=== PATIENT | male | born 1985 | race Caucasian/White ===

== ENCOUNTER 2022-11-16 11:47 | Emergency (ER) | payer SELFPAY ==
[2022-11-16 11:56] VITALS: BP 137/78; PULSE 94; RESP 16; TEMP 36.8; O2SAT 98; BMI 24.3
--- NOTE | 2022-11-16 12:46 | W.ED.EXTPRO ---
HPI - Extremity Problem General: Chief complaint: Extremity Injury, Upper Stated complaint: Left Shoulder pain Time Seen by Provider: 11/16/22 12:14 Source: patient Mode of arrival: ambulatory Limitations: no limitations History of Present Illness: Patient is a 37-year-old male who presents to ED today with a complaint of left shoulder pain over the past 3.5 weeks. No known injury or trauma. 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 States it flared up similarly last year but went away on its own after 2 weeks or so. Patient has not noticed any redness or warmth to the joint. He denies numbness or tingling to the arm. MD Complaint: joint pain Onset (ago): week(s) Pain Consistency: constant Location: left and upper extremity Radiation: none Relieving factors: nothing Exacerbating factors: range of motion and other Associated symptoms: Reports no associated symptoms; Deny chest pain Review of Systems Card: Denies: chest pain Resp: Denies: dyspnea Musc: Reports: joint pain; Denies: neck pain, back pain, extremity pain, extremity swelling, joint swelling, joint redness or joint warmth Neuro: Denies: numbness in extremities, weakness in extremities or sensory changes Physical Exam Const: COMMON NORMALS: no acute distress, average body habitus, patient oriented x3, no limitations, healthy appearing, alert and well nourished Neck/C-Spine: NECK IMAGES: 1. feels like pain in his shoulder is causing area to spasm Resp: COMMON NORMALS: normal respiratory effort and clear to auscultation bilaterally AUSCULTATION: clear to auscultation bilaterally Cardio: COMMON NORMALS: regular rate and regular rhythm RATE: regular rate RHYTHM: regular rhythm Back/Pelvis: COMMON NORMALS: thoracic and lumbar spine normal to inspection, no thoracic nor lumbar tenderness and thoraco-lumbar ROM normal Extremity: COMMON NORMALS: normal to inspection, full ROM, capillary refill normal, no joint enlargement and no calf tenderness GENERAL: Yes normal exam except as noted LEFT UPPER EXTREMITY: Yes shoulder joint (TTP anterior/posterior joint line) Left shoulder joint: Yes neurovascular exam (normal) Neuro: COMMON NORMALS: patient oriented x3, moves all extremities, no focal motor deficits and no sensory deficits noted SENSORIUM/ORIENTATION: Yes alert Course Vital Signs: Vital signs: Vital Signs Temperature 98.3 F 11/16/22 11:56 Pulse Rate 94 11/16/22 11:56 Respiratory Rate 16 11/16/22 11:56 Blood Pressure 137/78 11/16/22 11:56 Pulse Oximetry 98 11/16/22 11:56 Oxygen Delivery Me thod Room Air 11/16/22 11:56 MDM - Extremity (Nontraumatic) Medical Decision Making Most likely chronic overuse injury/tendonitis/labral tear. I think XR at this time would be fairly low yield. We will place him on NSAIDs and steroids. He does feel like his neck is spasming secondary to pain in his shoulder so we will prescribe him cyclobenzaprine. We will have case management set him up with primary care provider further evaluation if symptoms do not improve. Discharge Plan Discharge Patient Disposition: Home Clinical Impression: Acute pain of left shoulder Condition: Stable Prescriptions: New cyclobenzaprine 10 mg tablet 10 mg PO TID Qty: 14 0RF diclofenac sodium 50 mg tablet,delayed release (DR/EC) 50 mg PO Q12H PRN (Reason: pain) Qty: 20 0RF Medrol (Cody) 4 mg tablets,dose pack See Rx Instructions .ROUTE .COMPLEX Qty: 21 0RF Rx Instructions: orally per package directions Discharge Orders: Discharge ED (Routine); Ordered 11/16/22 Ordered By: Lashell Dockery Patient Instructions: Shoulder Pain (ED) Coding Level of Care Code ED Identification Printing Machine Setter for Mica Eastman
[2022-11-16] MEDS: dexamethasone 10 mg/mL INJ 6 MG IM (13:08)
[2022-11-16] MEDS: ketorolac 60 mg/2 mL INJ IM (13:08)
--- NOTE | 2022-11-16 15:35 | PC.NURSE ---
Patient was seen in the ED for shoulder pain. Referral for a pcp follow up. TCM attempted to call patient with no answer.
--- NOTE | 2022-11-24 15:07 | DCPLANNER ---
TCM called patient due to no primary care physician - no answer at this time.
== END 2022-11-16 13:16 | disposition home or self-care (01) ==
PROVIDERS: Emergency Provider Physician Assistant
DX: M25.512 Pain in left shoulder (principal)
CPT/HCPCS: 96372; 99284; J1100; J1885

== ENCOUNTER 2023-10-12 10:37 | Emergency (ER) | payer SELFPAY ==
[2023-10-12] VITALS (13 sets, daily range): BP systolic 152–162; BP diastolic 90–100; PULSE 79–113; RESP 16–18; TEMP 36.6; O2SAT 94–99
--- NOTE | 2023-10-12 10:41 | XR_ITS ---
WS: [id number] Exam: XR chest 1V portable [id number] Date/Time of Exam: 10/12/2023 10:41 AM Reason For Exam: sob Comparison 03/04/2011. Findings: The lungs are clear and fully expanded. Costophrenic angles are sharp. No infiltrates. Bronchovascula r relief appears normal. Cardiac silhouette is unremarkable. Bony elements are intact. IMPRESSION: Unremarkable chest radiograph.
--- NOTE | 2023-10-12 10:49 | ECG_ITS ---
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 Measurements Intervals [place] Rate: 91 P: 76 [place]: 135 QRS: 67 QRSD: 77 T: 58 QT: 321 QTc: 395 Interpretive Statements SINUS RHYTHM POSSIBLE LEFT ATRIAL ENLARGEMENT [-0.1mV P-WAVE IN V1/V2] MINIMAL ST DEPRESSION [0.025+ mV ST DEPRESSION] No previous ECG available for comparison Electronically Signed On 10-12-2023 11:46:54 CDT by Kel Stevens M.D. [id number]
--- NOTE | 2023-10-12 12:04 | ED_ITS ---
HPI - SOB/Dyspnea 2 General: Chief Complaint: Shortness of Breath/Dyspnea Stated Complaint: SOB Time Seen by Provider: 10/12/23 11:22 History of Present Illness: HPI Narrative: 38-year-old male presents emergency room with complaint of shortness of breath and cough this been going on for about 3 years seen on noticing thing exacerbates or relieves it. He has not had any fever sweats or chills at time he will cough up some dark mucus but is not persistent. No history of smoking. 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 His cough is feels like is actually gotten a little better lately until he coughed up to dark mucus this morning. No hemoptysis no history of COPD or asthma. No associated chest pain. Course 2 Vital Signs: Vital signs: Vital Signs Temperature 97.9 F 10/12/23 10:41 Pulse Rate 82 10/12/23 12:55 Respiratory Rate 18 10/12/23 12:25 Blood Pressure 152/90 10/12/23 12:55 Pulse Oximetry 95 10/12/23 12:55 Oxygen Delivery Me thod Room Air 10/12/23 10:41 MDM - SOB/Dyspnea Medical Decision Making D-dimer negative troponin 6 patient has had this for months if not years. EKG does not show any acute changes reviewed as found in the chart and other labs unremarkable. Discharge patient home he has had problems with reflux in the past biggest issue is his chronic cough. Recommend he has tried [id number] omeprazole as well large Nexium needed 1 pill twice a day for 10 days then go down to 1 once daily establish with primary care doctor evaluate further Medical Records I reviewed the patient's medical records. Lab Data I reviewed the patient's lab results. 10/12/23 12:24 10/12/23 12:24 Labs/Radiology: Laboratory Results WBC 5.65 10^3/uL (3.29-11.43) 10/12/23 12:24 RBC 4.64 10^6/uL (3.85-5.65) 10/12/23 12:24 Hgb 15.30 g/dL (11.27-16.99) 10/12/23 12:24 Hct 43.4 % (37-53) 10/12/23 12:24 MCV 93.5 fl (82-101) 10/12/23 12:24 MCH 33.0 pg (27-33) 10/12/23 12:24 MCHC 35.3 g/dL (30-55) 10/12/23 12:24 RDW 13.0 % (12.1-15.1) 10/12/23 12:24 Plt Count 225 10^3/cmm (157-399) 10/12/23 12:24 MPV 10.0 fL (7.4-10.4) 10/12/23 12:24 Neut % (Auto) 64.4 % 10/12/23 12:24 Lymph % (Auto) 24.1 % 10/12/23 12:24 [place] % (Auto) 7.4 % 10/12/23 12:24 Eos % (Auto) 3.0 % 10/12/23 12:24 Baso % (Auto) 0.9 % 10/12/23 12:24 Neut # (Auto) 3.64 10^3/uL (1.8-7.7) 10/12/23 12:24 Lymph # (Auto) 1.4 10^3/uL (0.8-4.8) 10/12/23 12:24 [place] # (Auto) 0.4 10^3/uL (0.2-0.9) 10/12/23 12:24 Eos # (Auto) 0.2 10^3/uL (0.0-0.8) 10/12/23 12:24 Baso # (Auto) 0.1 10^3/uL (0.0-0.1) 10/12/23 12:24 Nucleated RBC % (auto) 0 % 10/12/23 12:24 Nucleated RBCs # 0.0 /100WBC 10/12/23 12:24 D-Dimer <= 0.27 ug/mLFEU (0-0.59) 10/12/23 12:24 Sodium 141 mmol/L (136-145) 10/12/23 12:24 Potassium 4.1 mmol/L (3.5-5.1) 10/12/23 12:24 Chloride 106 mmol/L (98-107) 10/12/23 12:24 Carbon Dioxide 27 mmol/L (22-29) 10/12/23 12:24 Anion Gap 12.1 (5-19) 10/12/23 12:24 BUN 14 mg/dL (6-20) 10/12/23 12:24 Creatinine 1.0 mg/dL (0.7-1.2) 10/12/23 12:24 GFR Calculation 83.6 mL/min (90-130) L 10/12/23 12:24 Glucose 94 mg/dL (65-115) 10/12/23 12:24 Calculated Osmolality 292 mOsm/kg (285-295) 10/12/23 12:24 Calcium 9.5 mg/dL (8.5-10.5) 10/12/23 12:24 Total Bilirubin 0.3 mg/dL (0.15-1.2) 10/12/23 12:24 AST 25 U/L (0-40) 10/12/23 12:24 ALT 25 U/L (0-41) 10/12/23 12:24 Alkaline Phosphatase 63 U/L (40-130) 10/12/23 12:24 Troponin T Baseline < 6 ng/L (0-15) 10/12/23 12:24 Total Protein 7.9 g/dL (6.6-8.7) 10/12/23 12:24 Albumin 4.6 g/dL (3.5-5.2) 10/12/23 12:24 Globulin 3.3 g/dL (1.3-4.6) 10/12/23 12:24 All radiology interpretation(s) finalized by discharge Discharge Plan Discharge Patient Disposition: Home Clinical Impression: Dyspnea Condition: Stable Prescriptions: No Action No Known Home Medications Discharge Orders: Discharge ED (Routine); Ordered 10/12/23 Ordered By: John Downing Discharge Diet: Usual diet Discharge Activity: Resume usual activity Patient Instructions: Opioid Safety, Pain Management Activity Restrictions/Additional Instructions: Thank you for choosing [facility] for your healthcare needs today. Please realize this is an emergency room and that we are providing you with a medical screening exam and this may not be complete and all inclusive of all the testing and or work up that you may need to determine your ailment or severity of your illness. It is very important that you follow up as instructed or that you return to the Emergency Department should you have concerns or if your condition changes or worsens in any way. Follow-up with your primary care doctor for further evaluations on the cause of your shortness of breath. Coding Level of Care Code ED Crm Developer for Mica Eastman
[2023-10-12 12:40] LABS: Basophils # 0.1 10^3/uL (0.0-0.1); Basophils % 0.9 %; Eosinophils # 0.2 10^3/uL (0.0-0.8); Hematocrit 43.4 % (37-53); Lymphocytes # 1.4 10^3/uL (0.8-4.8); Lymphocytes % 24.1 %; Mean Corpuscular HGB Conc 35.3 g/dL (30-55); Mean Corpuscular Volume 93.5 fl (82-101); Monocytes # 0.4 10^3/uL (0.2-0.9); Monocytes % 7.4 %; Neutrophils # 3.64 10^3/uL (1.8-7.7); Neutrophils % 64.4 %; Nucleated Red Blood Cells % 0 %; Platelet Count 225 10^3/cmm (157-399); Red Blood Count 4.64 10^6/uL (3.85-5.65); White Blood Count 5.65 10^3/uL (3.29-11.43)
[2023-10-12 13:00] LABS: D Dimer <= 0.27 ug/mLFEU (0-0.59)
[2023-10-12 13:01] LABS: Alanine Aminotransferase 25 U/L (0-41); Albumin Level 4.6 g/dL (3.5-5.2); Alkaline Phosphatase 63 U/L (40-130); Anion Gap 12.1 (5-19); Aspartate Amino Transferase 25 U/L (0-40); Blood Urea Nitrogen 14 mg/dL (6-20); Calcium 9.5 mg/dL (8.5-10.5); Carbon Dioxide 27 mmol/L (22-29); Chloride 106 mmol/L (98-107); Creatinine Clr Calc Pharmacy 95.4102; Globulin 3.3 g/dL (1.3-4.6); Glomerular Filtration Rate 83.6 mL/min (90-130); Glucose 94 mg/dL (65-115); Osmolality Calculated 292 mOsm/kg (285-295); Potassium 4.1 mmol/L (3.5-5.1); Sodium 141 mmol/L (136-145); Total Bilirubin 0.3 mg/dL (0.15-1.2); Total Protein 7.9 g/dL (6.6-8.7)
[2023-10-12 13:42] LABS: Troponin(5th) Baseline < 6 ng/L (0-15)
== END 2023-10-12 14:18 | disposition home or self-care (01) ==
PROVIDERS: Emergency Provider Family Medicine
DX: R06.00 Dyspnea, unspecified (principal)
CPT/HCPCS: 71045; 80053; 84484; 85025; 85378; 93005; 99285

== ENCOUNTER 2024-11-30 16:07 | Emergency (ER) | payer BC, MEDICAID, SELFPAY ==
[2024-11-30 16:14] VITALS: BP 118/74; PULSE 83; RESP 16; TEMP 36.6; O2SAT 99; BMI 24.3
--- NOTE | 2024-11-30 16:52 | ED_ITS ---
HPI - Dental/Oral General: Chief complaint: Dental/Oral Stated complaint: swelling under jaw line Time Seen by Provider: 11/30/24 16:19 Source: patient Mode of arrival: ambulatory Limitations: no limitations History of Present Illness: 39-year-old male states been having some right sided jaw pain radiates down to his neck been going on for roughly 10 to 14 days. Pains been sharp and does have a history of some poor dentition denies any fevers he denies any difficulty swallowing no muffled voice. Associated symptoms: Denies fever(s) Related Data Previous Rx's ?Medication ?Instructions ?Recorded cephalexin 500 mg capsule 500 mg PO TID 7 days #21 cap s 11/30/24 hydrocodone 5 mg-acetaminophen 325 1 tab PO Q6H PRN pa in #14 tabs 11/30/24 mg tablet Allergies Allergy/AdvReac Type Severity Reaction Status Date / Time No Known Allergies Allergy Verified 10/12/23 10:47 Review of Systems Const: Denies: fever(s), chills, body aches or change in appetite ENMT: Reports: dental pain; Denies: throat pain Card: Denies: chest pain Resp: Denies: dyspnea GI: Denies: abdominal pain, nausea, vomiting or diarrhea Musc: Reports: neck pain; Denies: back pain Skin/Breast: Denies: rash Neuro: Denies: headache(s) Physical Exam Const: COMMON NORMALS: no acute distress, patient oriented x3 and healthy appearing HENMT: COMMON NORMALS: normocephalic and atraumatic HEAD & SCALP: normocephalic and atraumatic OTHER: Slight tenderness of the right lower molar no trismus no uvular deviation handling secretions well Neck/C-Spine: COMMON NORMALS: full ROM and supple OTHER: Lymph node palpable right side of the neck no abscess Chest: COMMONS NORMALS: normal inspection of the chest Resp: COMMON NORMALS: normal respiratory effort Cardio: COMMON NORMALS: regular rate RATE: regular rate Extremity: COMMON NORMALS: normal to inspection and full ROM Neuro: COMMON NORMALS: patient oriented x3, moves all extremities and no focal motor deficits Psych: COMMON NORMALS: mental status grossly normal, Normal thought process present and cooperative THOUGHT PROCESS: Normal thought process present Skin: COMMON NORMALS: no rashes or lesions noted and no wounds GENERAL SKIN EXAM: no rashes or lesions noted Course Vital Signs: Vital signs: Vital Signs Temperature 97.9 F 11/30/24 16:14 Pulse Rate 83 11/30/24 16:14 Respiratory Rate 16 11/30/24 16:14 Blood Pressure 118/74 11/30/24 16:14 Pulse Oximetry 99 11/30/24 16:14 Oxygen Delivery Me thod Room Air 11/30/24 16:14 MDM - Dental/Oral Medical Decision Making Patient presents here with dental pain along with neck pain does have a palpable lymph node no signs of abscess no signs of peritonsillar abscess handling secretions well will be dose of Decadron will place him on antibiotics he is to follow-up with his PCP return if worsening he understands agrees to plan Medical Records I reviewed the patient's medical records. No radiology studies performed this visit Discharge Plan Discharge Patient Disposition: Home Clinical Impression: Pain, dental, Neck pain Condition: Stable Prescriptions: New hydrocodone-acetaminophen 5-325 mg tablet 1 tab PO Q6H PRN (Reason: pain) Qty: 14 0RF cephalexin 500 mg capsule 500 mg PO TID 7 Days Qty: 21 0RF Discharge Orders: Discharge ED (Routine); Ordered 11/30/24 Ordered By: Belinda Alonzo Discharge Diet: Advance as tolerated Discharge Activity: Resume usual activity Patient Instructions: Toothache (ED), Neck Pain (ED) Print Language: Persian Coding Level of Care Code ED Technology Sales Specialist for Mica Eastman
[2024-11-30] MEDS: HYDROcodone-acetaminophen 7.5-325 mg Tablet 1 TAB PO (17:03)
[2024-11-30] MEDS: dexamethasone 10 mg/mL INJ IM (17:03)
[2024-11-30 17:10] VITALS: BP 127/78; PULSE 84; O2SAT 96
== END 2024-11-30 17:13 | disposition home or self-care (01) ==
PROVIDERS: Emergency Provider Emergency Medicine
DX: K08.89 Other specified disorders of teeth and supporting structures (principal); M54.2 Cervicalgia
CPT/HCPCS: 96372; 99284; J1100; J9999

== ENCOUNTER 2025-03-31 10:12 | Emergency (ER) | payer BC, MEDICAID, SELFPAY ==
--- NOTE | 2025-03-31 10:19 | XR_ITS ---
WS: [id number] Right shoulder, 3 views, 03/31/2025 Clinical Data: pain Comparison: None. Findings: No fractures or dislocations are seen. The AC joint is normal. The adjacent right clavicle, right scapula and ribs are normal. The soft tissues are unremarkable. XR/XR shoulder RT min 2V* [id number] Impression: Negative right shoulder.
--- OUTSIDE RECORDS SUMMARY | 2025-03-31 10:30 | XMS_ITS | Patient Health Record ---
Author Organization [employer] [facility] Address [address] [address] Care Team Providers Care Conveyor Belt Repairer Name Role Phone BronxJustin gaticai Unavailable [phone] Allergies No Known Allergies Reason For Referral No Information Social History Sex Assigned At : Social History Observation Description Sex Assigned At Male Problems Problem Type SNOMED Code ICD Code Onset Dates Problem Status W/U Status Risk Notes Problem Dysphagia (31141047) Dysphagia, unspecified type (R13.10) Active confirmed Vital Signs Heart Rate 68 /min 12/02/202404/04-throat pa in Temperature 97.8 degrees Fahrenheit 12/02/202403/26 0-throat pain Height-cm 175.26 cm 12/02/202404/04-throat pa in Blood pressure diastolic 86 mm Hg 12/02/2024-throat pain Oximetry 99 % 12/02/202404/04-throat pa in Weight-kg 76.57 kg 12/02/202404/04-throat pa in Height 69 in 12/02/202404/04-throat pa in Blood pressure systolic 132 mm Hg 12/02/202403/26 0-throat pain Weight 168.8 lbs 12/02/202404/04-throat pa in BMI 24.92 kg/m2 12/02/202404/04-throat pa in Encounters Encounter Location Date Provider Diagnosis [facility] [address] [facility] [address] [place] [address] 12/02/2024 Barbie Segovia Trismus R25.2 ; Dysphagia, unspecified type R13.10 and Tender lymph node R09.89 Assessments Encounter Date Diagnosis (ICD Code) Assessment Notes Treatment Notes Treatment Clinical Notes Section Notes 12/02/2024 Dysphagia, unspecified type (ICD-10 - R13.10) 12/02/2024 Trismus (ICD-10 - R25.2) 12/02/2024 Tender lymph node (ICD-10 - R09.89) 12/02/2024 Other Patient is stable. No acute distress. will take him to ER now per private car. Advised to remain n.p.o. Plan Of Treatment No Information Insurance Providers Payer Name Payer Address Payer Phone Subscriber Number Group Number Insured Name Patient Relationship to Insured Coverage Start Date Coverage End Date Healthy [facility] [address] [address] [place], [place] [phone] [id number] DARON ROQUE Self - patient is the insured 4
[2025-03-31 10:34] VITALS: BP 130/77; PULSE 78; RESP 16; O2SAT 94
--- NOTE | 2025-03-31 10:50 | W.ED.UPPEXIN ---
HPI - Extremity Injury (Upper) General: Chief Complaint: Extremity Injury, Upper Stated Complaint: Right shoulder pain Time Seen by Provider: 03/31/25 10:39 Source: patient Mode of arrival: ambulatory Limitations: no limitations History of Present Illness: Patient is a nice 40-year-old male who presents to ED today for evaluation of right shoulder pain. Patient states he has had pain for a few days but states he was lifting something heavy when he immediately noticed worsening pain. He feels like his pain is mainly located posteriorly. He describes it as sharp and burning. He has not noticed any swelling or redness to the joint. MD complaint: injury to: right and shoulder Onset (ago): day(s) Other Extremity Injury: Right: shoulder Other injuries: none Place: home Severity: moderate Relieving factors: immobilization Exacerbating factors: movement of extremity Associated symptoms: Reports no associated symptoms; Denies neck pain or weakness in extremities Related Data Previous Rx's ?Medication ?Instructions ?Recorded hydrocodone 5 mg-acetaminophen 325 1 tab PO Q6H PRN pain #14 tabs 11/30/24 mg tablet ibuprofen 800 mg tablet 800 mg PO Q8H PRN pain #20 tabs 03/31/25 methylprednisolone 4 mg tablets in See Rx Instructions PO .COMPLEX 03/31/25 a dose pack (Medrol (Cody)) #21 ea Allergies Allergy/AdvReac Type Severity Reaction Status Date / Time No Known Allergies Allergy Verified 10/12/23 10:47 Review of Systems Const: Denies: fever(s) Card: Denies: chest pain Resp: Denies: dyspnea Musc: Reports: joint pain (R shoulder); Denies: neck pain, back pain, extremity pain, extremity swelling, joint swelling or joint redness Skin/Breast: Denies: rash Neuro: Denies: headache(s), numbness in extremities, weakness in extremities, sensory changes, difficulty walking or dizziness Physical Exam Const: COMMON NORMALS: no acute distress, average body habitus, no limitations, healthy appearing, alert and well nourished Neck/C-Spine: COMMON NORMALS: full ROM CERVICAL SPINE: No Cervical spine tenderness, No Paracervical muscle tenderness and No Trapezius muscle tenderness Resp: COMMON NORMALS: normal respiratory effort and clear to auscultation bilaterally AUSCULTATION: clear to auscultation bilaterally Back/Pelvis: COMMON NORMALS: thoracic and lumbar spine normal to inspection and no thoracic nor lumbar tenderness Extremity: COMMON NORMALS: capillary refill normal GENERAL: Yes normal exam except as noted RIGHT UPPER EXTREMITY: Yes shoulder joint (TTP posterior R shoulder) Right shoulder: Yes Right shoulder joint ROM exam (fairly normal passive ROM) and Yes Right shoulder joint neurovascular exam (normal) Neuro: COMMON NORMALS: moves all extremities, no focal motor deficits and no sensory deficits noted SENSORIUM/ORIENTATION: Yes alert Course Vital Signs: Vital signs: Vital Signs Pulse Rate 78 03/31/25 10:34 Respiratory Rate 16 03/31/25 10:34 Blood Pressure 130/77 03/31/25 10:34 Pulse Oximetry 98 03/31/25 10:57 Oxygen Delivery Me thod Room Air 03/31/25 10:57 MDM - Extremity Injury (Upper) Medical Decision Making XR unremarkable. Patient will be treated with NSAIDs/steroids. Recommend other conservative therapies such as ice/heat and topical therapies. If symptoms do not improve with conservative treatment, recommend he follow-up with primary care as physical therapy may be beneficial. DDx-impingement syndrome, sprain/strain right shoulder, rotator cuff tear Medical Records I reviewed the patient's medical records. Lab Data Radiology Impressions Shoulder X-Ray 03/31/25 10:19 Impression: Negative right shoulder. All radiology interpretation(s) finalized by discharge Discharge Plan Discharge Patient Disposition: Home Clinical Impression: Injury of shoulder, right Condition: Stable Prescriptions: New ibuprofen 800 mg tablet 800 mg PO Q8H PRN (Reason: pain) Qty: 20 0RF methylprednisolone [Medrol (Cody)] 4 mg tablets,dose pack See Rx Instructions .ROUTE .COMPLEX Qty: 21 0RF Rx Instructions: orally per package directions No Action hydrocodone-acetaminophen 5-325 mg tablet 1 tab PO Q6H PRN (Reason: pain) Qty: 14 0RF Discharge Orders: Discharge ED (Routine); Ordered 03/31/25 Ordered By: Lashell Dockery Referrals: Barbie Segovia FNP [Primary Care Provider, Family Practice] Patient Instructions: Patient Portal & Arlette Instructions Activity Restrictions/Additional Instructions: As we discussed, if symptoms do not improve over the next 2 weeks or so with conservative therapies including the steroids and anti-inflammatories you are prescribed today along with ice/heat topical therapies such as lidocaine/Biofreeze you will need to follow-up with primary care. You may require MRI imaging or physical therapy to help with your shoulder pain. Print Language: [place] Rican Coding Level of Care Code ED Manufacturing Quality Technician for Mica Eastman
[2025-03-31 10:57] VITALS: O2SAT 98
[2025-03-31 11:04] VITALS: BP 126/76; PULSE 82; RESP 17; O2SAT 99
== END 2025-03-31 11:05 | disposition home or self-care (01) ==
PROVIDERS: Emergency Provider Physician Assistant; PCP Nurse Practitioner
DX: S49.91XA Unspecified injury of right shoulder and upper arm, initial encounter (principal); X50.0XXA Overexertion from strenuous movement or load, initial encounter
CPT/HCPCS: 73030; 96372; 99284; J1100; J1885

== ENCOUNTER → 2025-05-07 14:57 | Outpatient (BNVA) | payer BC, MEDICAID, SELFPAY | PROVIDERS: PCP Nurse Practitioner; Visit Provider Specialist | DX: M25.511 Pain in right shoulder (principal) | CPT/HCPCS: 73030 ==